=== PATIENT | female | born 1955 | race Caucasian/White ===

== ENCOUNTER 2020-06-19 13:54 | Outpatient (REF) | payer OTHER, SELFPAY ==
--- NOTE | 2020-06-19 13:59 | XR_ITS ---
EXAMINATION: Bilateral knee series CLINICAL INFORMATION: Pain in right knee. Pain in left knee. COMPARISON: None TECHNIQUE: [place] and lateral views of each knee. AP bilateral standing view of both knees. FINDINGS: Right knee: Mild medial compartment joint space narrowing. No fracture or dislocation seen. No joint effusion. There is enthesopathy of the distal quadriceps tendon attachment as well as the proximal and distal patellar tendon attachments. Mild medial patellofemoral joint space narrowing and medial patellar tilt. Left knee: No fracture or dislocation. No joint effusion. Minimal medial compartment joint space narrowing. Lateral patellar osteophytosis. There is enthesopathy of the distal quadriceps and attachment as well as the proximal and distal patellar tendon attachments. XR/XR knee RT 2V IMPRESSION: No acute osseous abnormality. 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
--- NOTE | 2020-06-19 13:59 | XR_ITS ---
EXAMINATION: Bilateral knee series CLINICAL INFORMATION: Pain in right knee. Pain in left knee. COMPARISON: None TECHNIQUE: [place] and lateral views of each knee. AP bilateral standing view of both knees. FINDINGS: Right knee: Mild medial compartment joint space narrowing. No fracture or dislocation seen. No joint effusion. There is enthesopathy of the distal quadriceps tendon attachment as well as the proximal and distal patellar tendon attachments. Mild medial patellofemoral joint space narrowing and medial patellar tilt. Left knee: No fracture or dislocation. No joint effusion. Minimal medial compartment joint space narrowing. Lateral patellar osteophytosis. There is enthesopathy of the distal quadriceps and attachment as well as the proximal and distal patellar tendon attachments. XR/XR knee standing BI IMPRESSION: No acute osseous abnormality. 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
--- NOTE | 2020-06-19 13:59 | XR_ITS ---
EXAMINATION: Bilateral knee series CLINICAL INFORMATION: Pain in right knee. Pain in left knee. COMPARISON: None TECHNIQUE: [place] and lateral views of each knee. AP bilateral standing view of both knees. FINDINGS: Right knee: Mild medial compartment joint space narrowing. No fracture or dislocation seen. No joint effusion. There is enthesopathy of the distal quadriceps tendon attachment as well as the proximal and distal patellar tendon attachments. Mild medial patellofemoral joint space narrowing and medial patellar tilt. Left knee: No fracture or dislocation. No joint effusion. Minimal medial compartment joint space narrowing. Lateral patellar osteophytosis. There is enthesopathy of the distal quadriceps and attachment as well as the proximal and distal patellar tendon attachments. XR/XR knee LT 2V IMPRESSION: No acute osseous abnormality. 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
== END 2020-06-19 13:55 | disposition home or self-care (01) ==
LOC: HO.HOSX 13:54
PROVIDERS: PCP Family Medicine; Referring Provider Family Medicine; Visit Provider Orthopaedic Surgery
DX: M25.561 Pain in right knee (principal); M25.562 Pain in left knee; Z87.39 Personal history of other diseases of the musculoskeletal system and connective tissue
CPT/HCPCS: 73560; 73565; 99202

== ENCOUNTER 2020-09-07 06:06 | Day surgery (SDC) | payer OTHER, SELFPAY ==
[2020-09-03 09:07] VITALS: BMI 28.1
[2020-09-03 10:08] VITALS: BMI 28.0
--- NOTE | 2020-09-06 08:16 | P.CONAN_ITS ---
Documented by User: Temitope Swenson 09/06/20 08:17 HPI - Anesthesia Eval Consult details Narrative: 65yo F for Colonoscopy [facility] Past Medical History Medical History Back pain Borderline diabetes History of anxiety History of postoperative nausea and vomiting HTN (hypertension) Surgical History Surgical History H/O colonoscopy History of esophagogastroduodenoscopy (EGD) History of spinal surgery History of surgery on left wrist Social History Social History Alcohol intake: never Smoking Status: Never smoker Use of substances other than those prescribed or required for medical reasons: No Advance Directives Information Provided: No Recently lost weight without trying: No Current occupational status: unemployed Meds Allergies Allergy/AdvReac Type Severity Reaction Status Date / Time codeine [CODEINE] Allergy Mild NAUSEA & Verified 09/07/20 06:19 VOMITING penicillin G [Penicillin G] Allergy Mild ITCH Verified 09/07/20 06:19 Sulfa (Sulfonamide Allergy Mild RASH Verified 09/07/20 06:19 Antibiotics) [SULFA (SULFONAMIDE ANTIBIOTICS)] Home Medications Medication Instructions Recorded Confirmed Type bisoprolol 2.5 1 tab PO DAILY 06/19/20 09/03/20 History mg-hydrochlorothiazide 6.25 mg tablet tramadol 50 mg tablet 50 mg PO DAILY 06/19/20 09/03/20 History gabapentin 1 cap PO BEDTIME PRN 09/03/20 09/03/20 History lisinopril 20 mg PO DAILY 09/03/20 09/07/20 History Exam Exam Date and Time: September 06, 2020 0816 Height,Weight and Vital Signs: Height 5 ft 5 in Weight 76.657 kg Assessment and Plan Assessment Anesthesia Assessment: Chart Reviewed Documented by User: Kay Carrera 09/07/20 08:12 [facility] Past Medical History Medical History Back pain Borderline diabetes History of anxiety History of postoperative nausea and vomiting HTN (hypertension) Family History Family history of problems with anesthesia: No Surgical History Surgical History H/O colonoscopy History of esophagogastroduodenoscopy (EGD) History of spinal surgery History of surgery on left wrist History of Problems with Anesthesia: Yes (PONV) Social History Social History Alcohol intake: never Smoking Status: Never smoker Use of substances other than those prescribed or required for medical reasons: No Advance Directives Information Provided: No Recently lost weight without trying: No Current occupational status: unemployed Meds Allergies Allergy/AdvReac Type Severity Reaction Status Date / Time codeine [CODEINE] Allergy Mild NAUSEA & Verified 09/07/20 06:19 VOMITING penicillin G [Penicillin G] Allergy Mild ITCH Verified 09/07/20 06:19 Sulfa (Sulfonamide Allergy Mild RASH Verified 09/07/20 06:19 Antibiotics) [SULFA (SULFONAMIDE ANTIBIOTICS)] Home Medications Medication Instructions Recorded Confirmed Type bisoprolol 2.5 1 tab PO DAILY 06/19/20 09/03/20 History mg-hydrochlorothiazide 6.25 mg tablet tramadol 50 mg tablet 50 mg PO DAILY 06/19/20 09/03/20 History gabapentin 1 cap PO BEDTIME PRN 09/03/20 09/03/20 History lisinopril 20 mg PO DAILY 09/03/20 09/07/20 History Exam Height,Weight and Vital Signs: Vital Signs Temp Pulse Resp BP Pulse Ox 09/07/20 06:27 96.8 F 68 18 189/86 H 98 Airway Mallampati Class: II TM Dist: >3cm Neck ROM: Full Denture: Upper Heart: RRR Lungs: CTAB Assessment and Plan Assessment Anesthesia Assessment: Anesthesia Plan Discussed and Chart Reviewed Final Anesthetic Review NPO: Yes ASA Class: II Final Preanesthetic Review: No Changes in Pt Med Stat, Meds/Allgs Chart Reviewed, Consent Obtained/Reviewed and Anes Risks/Benef Reviewed Patient Risk: Low Procedure Risk: Low Assessment/Block/Sedation in SS: Assess/Block/Sedation-SS Anesthetic Plan Anesthetic Plan: MAC: Disposition: Standard PACU
[2020-09-07 06:27] VITALS: BP 189/86; PULSE 68; RESP 18; TEMP 36; O2SAT 98
[2020-09-07] MEDS: Lactated Ringers 1,000 ML 100 ML IVCONT (06:47)
--- NOTE | 2020-09-07 06:48 | PC.NURSE ---
BP RECHECK IS 170/82 AT THIS TIME.
--- NOTE | 2020-09-07 07:28 | PC.NURSE ---
BP 171/85 AT THIS TIME. HR 72 NSR. ANESTHESIA AT BEDSIDE AND IS AWARE OF PATIENT'S BP.
[2020-09-07 08:31] VITALS: BP 120/66; PULSE 66; RESP 16; TEMP 36.2; O2SAT 97
--- NOTE | 2020-09-07 08:34 | PM.OP ---
Brief Operative Note Date of Service: 09/07/20 Pre-op diagnosis: Screening Post-op diagnosis: other (Colon polyps) Procedure: Colonoscopy to cecum and TI with biopsy and removal of polyps Surgeon: Glynn Mccallum Anesthesia: MAC Estimated blood loss (mL): 3.0 Pathology: other (A. Ascending colon polyp B. Polyp at 20cm) Condition: stable Disposition: PACU
[2020-09-07 08:47] VITALS: BP 142/82; PULSE 56; RESP 16; TEMP 36.2; O2SAT 98
--- NOTE | 2020-09-07 09:19 | OP_ITS ---
SURGEON: Glynn Mccallum MD INDICATIONS: The patient presents for evaluation of colorectal cancer screening and personal history of tubular adenoma of the colon. Full consent has been obtained from her for this, including risks of bleeding and perforation. PREOPERATIVE DIAGNOSIS: POSTOPERATIVE DIAGNOSIS: PROCEDURE PERFORMED: Colonoscopy to the cecum and terminal ileum with biopsy and removal of polyps. ESTIMATED BLOOD LOSS: COMPLICATIONS: ANESTHESIA: Monitored anesthesia care. ASSISTANTS: SPECIMENS: PREOPERATIVE DIAGNOSES: Colorectal cancer screening and personal history of tubular adenoma of the colon. POSTOPERATIVE DIAGNOSES: Colorectal cancer screening and personal history of tubular adenoma of the colon, small colon polyps, diverticulosis and internal hemorrhoids. DESCRIPTION OF PROCEDURE: The patient was placed in the left lateral decubitus position. The digital rectal exam revealed no abnormalities. The Olympus video pediatric colonoscope was entered into the rectum and advanced easily to the cecum. Once in the cecum, I did identify normal appearing cecal pouch with appendiceal orifice and a normal-appearing ileocecal valve. The terminal ileum was cannulated and appeared normal. The scope was withdrawn back in the colon. The entire cecum was well visualized other than a small portion of some residual stool, which was irrigated and suctioned away as best as possible, although not completely. However, the majority of tthe cecum was well visualized and did appear normal. The scope was then slowly withdrawn assessing all mucosal surfaces carefully. Again, the preparation throughout the colon was excellent except for some small areas of residual stool, which were again suctioned away as best as possible. In the ascending colon and 20 cm were flat, approximately 4 mm polyps which were each biopsied and completely removed with cold biopsy forceps. I did not visualize any other polyps, colitis, or angiodysplasia. There was a mild amount of sigmoid diverticulosis. In the rectum, scope was retroflexed visualizing small internal hemorrhoids, but no other pathology. The rectal mucosa appeared normal. The scope was straightened and withdrawn from the patient. She tolerated the procedure well and was returned to recovery area in stable condition. IMPRESSION: 1. Small colon polyps, status post biopsy removal. 2. Diverticulosis. 3. Internal hemorrhoids. PLAN: The results of the pathology will be checked. I would recommend a repeat colonoscopy in 5 years for further surveillance. She will otherwise see me on a p.r.n. basis. MD LEANDRO Batista/NALINI / [id number] BG
== END 2020-09-07 09:37 | disposition home or self-care (01) ==
PROVIDERS: PCP Family Medicine; Visit Provider Internal Medicine
PROC: 0DJD8ZZ Inspection of Lower Intestinal Tract, Via Natural or Artificial Opening Endoscopic (ICD-10-PCS; CPT 45378; principal; 2020-09-07 07:30)
DX: Z12.11 Encounter for screening for malignant neoplasm of colon (principal); Z86.010 Personal history of colon polyps; D12.2 Benign neoplasm of ascending colon; K63.5 Polyp of colon; K57.30 Diverticulosis of large intestine without perforation or abscess without bleeding; K64.8 Other hemorrhoids; I10 Essential (primary) hypertension; R73.03 Prediabetes; Z79.899 Other long term (current) drug therapy; Z88.0 Allergy status to penicillin; Z88.2 Allergy status to sulfonamides; Z88.8 Allergy status to other drugs, medicaments and biological substances
CPT/HCPCS: 45380; 88305

== ENCOUNTER → 2024-05-04 15:22 | Outpatient (REF) | payer OTHER, SELFPAY ==
--- NOTE | 2024-05-04 15:30 | CA_ITS ---
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 The calculated ejection fraction is 62% by biplane method. - No obvious valvular pathology seen on this study. Findings Left Ventricle Normal left ventricular cavity size. There is mildly increased left ventricular wall thickness. The left ventricular systolic function is normal. The calculated ejection fraction is 62% by biplane method. There is no evidence of regional wall motion abnormalities. Evidence suggests grade I (mild) diastolic dysfunction. Right Ventricle Normal right ventricular cavity size and systolic function. Atria Both atria are normal in size. Aortic Valve There is a normal trileaflet aortic valve. There is no aortic valve stenosis. There is no aortic valve regurgitation. Mitral Valve The mitral valve appears normal. There is trace mitral valve regurgitation. There is no mitral valve stenosis. Pulmonic Valve The pulmonic valve is likely normal. Tricuspid Valve Normal tricuspid valve structure. There is trace tricuspid valve regurgitation. There is no evidence of pulmonary hypertension. Great Vessels The asc aorta is normal in size. Venous The inferior vena cava is normal in size and collapses greater than 50% with inspiration. Pericardium/Pleural There is no evidence of pericardial effusion. Prior Study Comparison No prior study available for comparison. Recommendations, Care & Conclusions No obvious valvular pathology seen on this study. Measurements 2D Linear Measurements IVSd: 1.05 0.6-0.9/0.6-1.0 cm LVIDd: 3.79 3.9-5.3/4.2-5.9 cm LVIDd Index: 2.03 2.4-3.2/2.2-3.1 cm/m2 LVIDs: 2.45 2.0-3.6 cm LVPWd: 1.10 0.7-1.1 cm Ao Root: 3.80 2.1-3.5 cm LA Diam: 3.40 2.7-3.8/3.0-4.0 cm LAIDs Index: 1.82 1.5-2.3 cm/m2 LV Mass: 161.35 67-162/88-224 g LV Mass Index: 86.28 43-95/49-115 g/m2 LVOT Diam: 2.30 3.0+(-)1.3 cm 2D Systolic Function EF 4C: 66.90 >55% EF 2C: 54.60 >55% EF BiP: 61.70 >55% Mitral Valve MV VTI: 0.30 MV Pk Joe: 0.93 MV Mn Joe: 0.54 MV Pk Grad: 3.00 MV Mn Grad: 1.00 MV Pk E: 0.60 MV PK A: 0.90 MV Decel Time: 295.00 E/A: 0.70 E'Lateral: 6.09 E'Medial: 4.24 E/E' Med: 14.20 E/E' Lat: 9.90 PHT: 86.00 MVA PHT: 2.56 MVA Continuity: 2.97 Decel [place]: 2.03 Aortic Valve AoV Pk Joe: 1.18 AoV Mn Joe: 0.71 AoV VTI: 0.28 AoV Pk Grad: 6.00 Aov Mn Grad: 3.00 KAREN Cont.VTI: 3.22 LVOT LVOT Pk Joe: 0.76 LVOT Mn Joe: 0.50 LVOT VTI: 0.22 LVOT Pk Grad: 2.00 LVOT Mn Grad: 1.00 LVOT Diam: 2.30 LVOT Area: 4.15 Diastolic Function MV Pk E: 0.60 MV Pk A: 0.90 E/A: 0.70 E'Medial: 4.24 E/E' Med: 14.20 E' Laterial: 6.09 E/E' Lat: 9.90 Right Ventricle TAPSE (mm): 22.00 TVS' Joe: 10.00 Tricuspid Valve TR Pk Joe: 1.71 TR Pk Grad: 12.00 RA Press: 3.00 RVSP: 15.00 Great Vessels Aorta Ao Root-2D: 3.80 2.0-3.7 cm Ao Asc: 3.40 2.1-3.4 cm Pulmonary Valve PV Pk Joe: 0.86 Peak PV Grad: 3.00 Updated in Other Vendor System with Status of Final Rafa Simental MD electronically signed on 05/05/2024 12:02:32 PM with status of Final
== END ==
LOC: HO.CARD 15:22
PROVIDERS: PCP Family Medicine; Visit Provider Family Medicine
DX: R06.02 Shortness of breath (principal); Z87.09 Personal history of other diseases of the respiratory system
CPT/HCPCS: 93306

== ENCOUNTER → 2024-05-04 15:30 | Outpatient (BNV) | payer OTHER, SELFPAY | PROVIDERS: PCP Family Medicine; Visit Provider Internal Medicine | DX: I51.89 Other ill-defined heart diseases (principal) | CPT/HCPCS: 93306 ==

== ENCOUNTER 2025-06-06 09:19 | Outpatient (REF) | payer OTHER, SELFPAY ==
[2025-06-06 11:19] LABS: MANUAL DIFF FLAG NO
[2025-06-06 11:38] LABS: Hematocrit 40.2 % (37.0-47.0); Hemoglobin 12.7 g/dl (12.0-16.0); Imm Gran Abs Auto 0.01 X10*3/uL (0.00-0.03); Imm Gran Pct Auto 0.3 % (0.0-0.4); Lymphocytes Absolute Auto 1.9 X10*3/uL (1.2-4.9); Mean Corpuscular HGB Conc 31.6 g/dl (31.0-35.0); Mean Corpuscular Hemoglobin 27.3 pg (27.0-33.0); Mean Corpuscular Volume 86.5 fL (80.0-98.0); NRBC Abs Auto 0.000 X10*3/uL (0.0-0.012); NRBC Pct Auto 0.0 /100WBC (0.0-0.2); Platelet Count 240 X10*3/uL (160-400); Red Blood Count 4.65 X10*6/uL (4.20-5.50); White Blood Count 4.0 X10*3/uL (4.8-10.8)
[2025-06-06 12:31] LABS: Alanine Aminotransferase 15 U/L (0-31); Albumin Level 4.3 g/dL (3.5-5.0); Alkaline Phosphatase 86 U/L (39-117); Anion Gap 9 (12-20); Aspartate Amino Transferase 26 U/L (5-31); Blood Urea Nitrogen 17 mg/dL (9-16); Calcium 9.6 mg/dL (8.4-10.2); Carbon Dioxide 31 mmol/L (22-29); Chloride 105 mmol/L (96-108); Cholesterol 171 mg/dL (<200); Estimated Glomerular Filt Rate > 60; HDL Cholesterol 47 mg/dL (>40); Potassium 4.3 mmol/L (3.3-5.1); Sodium 141 mmol/L (135-145); Total Protein 7.9 g/dL (6.5-8.0); Triglycerides 151 mg/dL (<150)
== END 2025-06-06 09:20 | disposition home or self-care (01) ==
LOC: HO.LAB 09:19
PROVIDERS: PCP Physician Assistant; Visit Provider Physician Assistant
DX: I10 Essential (primary) hypertension (principal); E11.9 Type 2 diabetes mellitus without complications; M79.7 Fibromyalgia; G89.29 Other chronic pain; M51.360 Other intervertebral disc degeneration, lumbar region with discogenic back pain only; Z79.899 Other long term (current) drug therapy
CPT/HCPCS: 36415; 80048; 80061; 80076; 82306; 83036; 84443; 85025; 99202

== ENCOUNTER 2025-06-06 09:19 | Outpatient (AMB) | payer OTHER, SELFPAY ==
--- NOTE | 2025-06-06 09:19 | MHC.PC.OV ---
Vital Signs 06/06/25 09:29 06/06/25 09:59 Height 5 ft 5.94 in Weight 73.028 kg BMI 26.0 BP 144/72 H 138/78 Blood Pressure Location Lt brachial Position Sitting Respiration 17 Pulse 60 Pulse Source Pulse Oximeter Temp 97.9 F Temp Source Temporal Artery Scan Pulse Oximetry (%) 96 Oxygen Delivery Method Room Air Intake Visit Reasons: VIVIEN/ Hand pt. - meds Social Sciences Research Scientist Required: No Accompanied by: Self / Same As Patient Allergies codeine (CODEINE) Allergy (Mild, Verified 06/06/25 09:19) NAUSEA & VOMITING penicillin G (Penicillin G) Allergy (Mild, Verified 06/06/25 09:19) ITCH Sulfa (Sulfonamide Antibiotics) (SULFA (SULFONAMIDE ANTIBIOTICS)) Allergy (Mild, Verified 06/06/25 09:19) RASH Medication List - Last Reconciled 06/06/25 by SOFI Dutton bisoprolol-hydrochlorothiazide 2.5-6.25 mg (Ziac) 1 tab PO DAILY gabapentin 100 mg PO BEDTIME lisinopril 20 mg PO DAILY multivitamin 1 tab PO DAILY tramadol 50 mg PO BID Tobacco use date assessed: 06/06/25 Fall risk assessment: 1 Fall in past year Last assessed Fall Risk: 06/06/25 Dental Screening Dental Screen Date: 06/06/25 Did you have a dental visit in the last 12 months?: Yes Did you have a dental problem in the last 6 months where you did not have access to dental care?: No Was dental information given to patient?: Patient has dentist HPI HPI Comments History of Present Illness Details 69-year-old female with history of hypertension, prediabetes, fibromyalgia, chronic low back pain, history of John-Schlatter disease presenting to the office today for management of chronic conditions and to establish care. Hypertension-blood pressure 130/78 on recheck. Compliant with bisoprolol-hydrochlorothiazide 2.5-6.25 mg and lisinopril 20 mg daily. Hypertension likely complicated by chronic pain Prediabetes-due for A1c Chronic low back pain/DDD-history of disc herniation s/p diskectomy in the early . Reports had a slip and fall at work in the early . Since the procedure she has had worsening pain in the low back. Radicular symptoms however have resolved. No weakness,/bowel/bladder dysfunction. She is able to ambulate but slowly. She has been on tramadol 50 mg daily for years as well as gabapentin 100 mg at bedtime. She has been offered other medications such as muscle relaxers and increased dose of gabapentin but states she prefers not to be on medications that can sedate her. 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 Otherwise rest for symptom management Fibromyalgia- reports uncomfortable diffuse pain, poorly managed. Does not exercise. Reports stress/anxiety historically but feels this is well-controlled Concerns: None other than above Health Maintenance: Last colonoscopy 08/2020, tubular adenoma [address] Felipe Last mammo 07/03, [facility], 1 year follow up. Scheduled for next Due for DEXA ROS: General: No fevers, malaise, unintentional weight loss HEENT: No blurred vision, diplopia. No sore throat, nasal congestion, rhinorrhea, sinus pain, ear pain Cardiovascular: No chest pain, palpitations, or leg edema Respiratory: No shortness of breath, wheezing, cough GI: No abdominal pain, nausea, vomiting, diarrhea, constipation, melena, hematochezia : No dysuria, hematuria, increased urinary frequency, decreased urinary output MSK: No myalgia, back pain Neuro: No headaches, weakness, paresthesias Skin: No rashes or lesions EXAM: Constitutional - Awake and Alert, No apparent distress Eyes - PERRL Cardiovascular - S1S2, RRR, No edema Respiratory - Normal lung expansion, Normal respiratory effort, No respiratory distress, CTA bilaterally Extremities - no calf tenderness bilaterally, no swelling MSK- TTP over the left SI joint. No other midline or paraspinal tenderness to palpation Skin - Warm/Dry Neurological - Alert & oriented x3. 5/5 strength ble. Antalgic gait Psychological - Appropriate affect [facility] Medical History (Updated 06/06/25 @ 10:08 by SOFI Dutton) Fibromyalgia Prediabetes Chronic low back pain DDD (degenerative disc disease), lumbar History of postoperative nausea and vomiting Borderline diabetes Back pain History of anxiety HTN (hypertension) Surgical History (Updated 06/05/25 @ 16:03 by Trish Poole) History of esophagogastroduodenoscopy (EGD) H/O colonoscopy (~09/07/20) History of spinal surgery History of surgery on left wrist Social History Housing: Apartment Alcohol intake: never Patient Tobacco Use Status: Never used Tobacco e-Cigarette/Vaping Use: Never Used service: No Current occupational status: unemployed Questionnaire AUDIT C Alcohol Use Questionnaire (AUDIT-C) 1. How often do you have a drink containing alcohol?: Never 3. How often do you have six or more drinks on one occasion?: Never Total Score: 0 Physical exam (Primary Care) Vital Signs: Last Vital Signs Temp 97.9 F 06/06/25 09:29 Pulse 60 06/06/25 09:29 Resp 17 06/06/25 09:29 BP 138/78 06/06/25 09:59 Pulse Ox 96 06/06/25 09:29 Oxygen Delivery Method Room Air 06/06/25 09:29 BMI result Body Mass Index 26.0 Tobacco/Smoking Status: Tobacco use Status Tobacco use date assessed 06/06/25 06/06/25 09:20 Patient Tobacco Use Status Never used Tobacco 06/06/25 09:31 e-Cigarette/Vaping Use Never Used 06/06/25 09:31 Coding Level of Care Code New Pt Level 4 (50199) Complex EM visit Add On G2211 Diagnoses HTN (hypertension) I10 Prediabetes R73.03 Fibromyalgia M79.7 Chronic low back pain M54.50; G89.29 Assessment & Plan Assessment & Plan (1) HTN (hypertension): Code(s): I10 - Essential (primary) hypertension Category: Medical Plan: Controlled on recheck. Continue bisoprolol-hydrochlorothiazide 2.56.25 mg and lisinopril 20 mg daily. Low-sodium diet. We will work on better pain control which should also help blood pressure management (2) Prediabetes: Code(s): R73.03 - Prediabetes Category: Medical Plan: Patient not aware of diagnosis. A1c ordered. Diet low in refined sugars and simple carbohydrates. Recommend exercise as tolerated (3) Fibromyalgia: Code(s): M79.7 - Fibromyalgia Category: Medical Plan: Poorly-controlled pain. Discussed increasing gabapentin but she is not interested in this. Continue 100 mg daily. Also discussed adding an SSRI such as Cymbalta but she is not interested in this either. Recommend managing stress/anxiety as she has been doing. Also recommend exercise as tolerated as she is advised this may also help with pain management. (4) Chronic low back pain: Code(s): M54.50 - Low back pain, unspecified; G. - Other chronic pain Category: Medical Plan: With known history of DDD and history of diskectomy in the early 90s. Agreeable to referral to water rights specialist which is placed. Increase tramadol to 50 mg twice daily. Counseled on side effects and tolerance/dependency. Can also continue gabapentin 100 mg at bedtime. As noted above, not interested in increasing gabapentin dosage even at bedtime. Declines muscle relaxer. Declines physical therapy she states that she has completed this without improvement in symptoms. Plan Follow-up in the office in 6 months. Labs to be completed today. Referred for DEXA scan. Reviewed last colonoscopy which showed tubular adenoma, next due 2025. Present for mammogram next month as scheduled. Orders: Orders XR lumbar spine 2-3V Today G. - Other chronic pain, M51.36 - Other intervertebral disc degeneration, lumbar region, M54.50 - Low back pain, unspecified XR DEXA axial skeleton Today M89.8X9 - Other specified disorders of bone, unspecified site, N95.1 - Menopausal and female climacteric states, Z13.820 - Encounter for screening for osteoporosis Hemoglobin A1c Today G. - Other chronic pain, M51.36 - Other intervertebral disc degeneration, lumbar region, M54.50 - Low back pain, unspecified, R73.03 - Prediabetes Lipid Panel Today G89. - Other chronic pain, M51.36 - Other intervertebral disc degeneration, lumbar region, M54.50 - Low back pain, unspecified, R73.03 - Prediabetes Liver Panel Today G89. - Other chronic pain, M51.36 - Other intervertebral disc degeneration, lumbar region, M54.50 - Low back pain, unspecified, R73.03 - Prediabetes TSH reflex Free T4 Today G89. - Other chronic pain, M51.36 - Other intervertebral disc degeneration, lumbar region, M54.50 - Low back pain, unspecified, R73.03 - Prediabetes Vitamin D 25-OH Total Today G89. - Other chronic pain, M51.36 - Other intervertebral disc degeneration, lumbar region, M54.50 - Low back pain, unspecified, R73.03 - Prediabetes Basic Metabolic Panel Today G89.29 - Other chronic pain, M51.36 - Other intervertebral disc degeneration, lumbar region, M54.50 - Low back pain, unspecified, R73.03 - Prediabetes Complete Blood Count Auto Diff Today G89.29 - Other chronic pain, M51.36 - Other intervertebral disc degeneration, lumbar region, M54.50 - Low back pain, unspecified, R73.03 - Prediabetes Referrals Orthopedics Referral G89.29 - Other chronic pain, M51.36 - Other intervertebral disc degeneration, lumbar region, M54.50 - Low back pain, unspecified Medications: Changed From tramadol Take two tablets by mouth every 8 hours as needed 50 mg PO DAILY To tramadol Take two tablets by mouth every 8 hours as needed 50 mg PO BID 60 tabs 0RF
[2025-06-06 09:29] VITALS: BP 144/72; PULSE 60; RESP 17; TEMP 36.6; O2SAT 96; BMI 26.0
[2025-06-06 09:59] VITALS: BP 138/78
--- OUTSIDE RECORDS SUMMARY | 2025-06-06 10:28 | XMS_ITS | Encounter Summary ---
Author Organization [facility] Address [address] [facility] [address] [place] [address] Phone Care Team Providers Care Strategic Marketing Associate Name Role Phone Chalino Hand MD Primary Care Provider Domonique Acharya MD Primary Care Provider [phone] Pcp, Unknown Primary Care Provider Unavailabl e Encounter Details Date Type Department Care Team (Latest Contact Info) Description 07/05/2022 Ancillary Orders [facility] [address] [place] [address] Lionel Pope, DO [address] [place] [address] [email or web address] Calculus of gallbladder without cholecystitis without obstruction Social History Tobacco Use Types Packs/Day Years Used Date Smoking Tobacco: Never Smokeless Tobacco: Never Alcohol Use Standard Drinks/Week Comments No 0 (1 standard drink = 0.6 oz pur e alcohol) Comments No Sex and Gender Information Value Date Recorded Sex Assigned at Female 05/13/2019 9:59 PM EDT Legal Sex Female 9:53 PM EDT Gender Identity Female 05/13/2019 9:59 PM EDT Sexual Orientation Not on file documented as of this encounter Functional Status * Calculated C-SSRS Risk Score (Lifetime/Recent) Answer Date of Assessment Author No Risk Indicated 07/05/2022 1:56 AM Ashkan Friedman, SHEFALI * [place] Suicide Severity Rating Scale (Screener/Recent Self-Report) Question Answer Date of Assessment Author 1. Wish to be (Past 1 Month) No 022 1:56 AM Ashkan Friedman, SHEFALI 2. Non-Specific Active Suici lizzie Thoughts (Past 1 Month) No 07/05/2022 1:56 AM Agapito Friedman, SHEFALI 6. Suicidal Behavior (Lifetime) No 1:56 AM Ashkan Friedman, RN documented as of this encounter Plan of Treatment Upcoming Encounters Date Type Department Care Team (Late st Contact Info) Description 04/11/2025 Procedure Pass [address] [address] 11/27/2025 1:15 PM EDT Appointment [address] [address] Domonique Acharya MD [address] [place] [phone] documented as of this encounter Results * US ABDOMEN LIMITED RIGHT UPPER QUADRANT (07/05/2022 11:06 AM EST) Anatomical Region Laterality Modality Abdomen Ultrasound 07/05/2022 12:2 3 PM EST Impressions 07/05/2022 12:27 PM EST Cholelithiasis without evidence of acute cholecystitis. Narrative 07/05/2022 12:27 PM EST US ABDOMEN LIMITED RIGHT UPPER QUADRANT TECHNIQUE: US Abdominal limited right upper quadrant. COMPARISON: Abdominal CT dated 06/17/2013 FINDINGS: Liver: Normal. There is a 2.7 x 1.9 x 1.7 cm cyst in the inferior right hepatic lobe. No other focal lesions. Main Portal Vein: Patent with normal direction of flow. Gallbladder: Multiple gallstones are present. Gallbladder is underdistended. Otherwise, no significant gallbladder wall thickening there is no pericholecystic fluid. Baker's Sign: Negative. Biliary: Normal. No intrahepatic or extrahepatic biliary ductal dilatation. The common bile duct measures 4 mm. No hydronephrosis in the right kidney Procedure Note Sherry Abad MD - 07/05/2022 US ABDOMEN LIMITED RIGHT UPPER QUADRANT TECHNIQUE: US Abdominal limited right upper quadrant. COMPARISON: Abdominal CT dated 06/17/2013 FINDINGS: Liver: Normal. There is a 2.7 x 1.9 x 1.7 cm cyst in the inferior righthepatic lobe. No other focal lesions. Main Portal Vein: Patent with normal direction of flow. Gallbladder: Multiple gallstones are present. Gallbladder isunderdistended. Otherwise, no significant gallbladder wall thickeningthere is no pericholecystic fluid. Baker's Sign: Negative. Biliary: Normal. No intrahepatic or extrahepatic biliary ductaldilatation. The common bile duct measures 4 mm. No hydronephrosis in the right kidney IMPRESSION: Cholelithiasis without evidence of acute cholecystitis. us Lionel Pope DO IMG US ABDOMEN Final Result documented in this encounter Visit Diagnoses Diagnosis Calculus of gallbladder without cholecystitis without obstruction Calculus of gallbladder without cholecystitis without obstruction documented in this encounter Care Teams Strategic Marketing Associate Relationship Specialty Start Date End Date Chalino Hand MD [address] [place] [address] [place] [address] PCP - General 05/26/17 04/10/25 Domonique Acharya MD [address] [place] [address] [place] [address] PCP - General Internal Medicine 04/11/25 05/05/25 Pcp, Unknown PCP - General 05/06/25 documented as of this encounter Additional Source Comments The information contained in this document represents components of the legal health record. It is not the complete legal health record.[facility]
--- OUTSIDE RECORDS SUMMARY | 2025-06-06 10:28 | XMS_ITS | Encounter Summary ---
Author Organization [facility] Address [address] [facility] [address] [place] [address] Phone Care Team Providers Care Molding Machine Operator Name Role Phone Chalino Hand MD Primary Care Provider Domonique Acharya MD Primary Care Provider [phone] Pcp, Unknown Primary Care Provider Unavailabl e Encounter Details Date Type Department Care Team (Late st Contact Info) Description 12/18/2022 Procedure Pass [facility], [facility] [address] [place] [address] Social History Tobacco Use Types Packs/Day Years Used Date Smoking Tobacco: Never Smokeless Tobacco: Never Alcohol Use Standard Drinks/Week Comments No 0 (1 standard drink = 0.6 oz pur e alcohol) Education Answer Date Recorded Are you interested in more education? Not on olive e 12/05/2022 Are you concerned about learning? Not on file 12/05/2022 No 12/05/2022 No 12/05/2022 Intimate Partner Violence Answer Date R ecorded Are you denied basic needs s uch as food, clothing, or medical care? No 08/13/2022 In the past 12 months have y ou been in a relationship with a person who hurts, threatens, or tries to control you? No 08/13/2022 Are you denied basic needs s uch as food, clothing, or medical care? No 08/13/2022 In the past 12 months have y ou been in a relationship with a person who hurts, threatens, or tries to control you? No 08/13/2022 Comments No Sex and Gender Information Value Date Recorded Sex Assigned at Female 05/13/2019 9:59 PM EDT Legal Sex Female 9:53 PM EDT Gender Identity Female 05/13/2019 9:59 PM EDT Sexual Orientation Not on file documented as of this encounter Plan of Treatment Upcoming Encounters Date Type Department Care Team (Late st Contact Info) Description 04/11/2025 Procedure Pass [address] [address] 11/27/2025 1:15 PM EDT Appointment [address] [address] Domonique Acharya MD [address] [place] [address] documented as of this encounter Visit Diagnoses Not on filedocumented in this encounter Care Teams Molding Machine Operator Relationship Specialty Start Date End Date Chalino Hand MD [address] [place] [address] [place] [address] PCP - General 05/26/17 04/10/25 Domonique Acharya MD [address] [place] [address] [place] [address] PCP - General Internal Medicine 04/11/25 05/05/25 Pcp, Unknown PCP - General 05/06/25 documented as of this encounter Additional Source Comments The information contained in this document represents components of the legal health record. It is not the complete legal health record.[facility]
--- OUTSIDE RECORDS SUMMARY | 2025-06-06 10:28 | XMS_ITS | Encounter Summary ---
Author Organization [facility] Address [address] [facility] [address] [place] [address] Phone Care Team Providers Care Peoples[employer] Financials Name Role Phone Chalino Hand MD Primary Care Provider Domonique Acharya MD Primary Care Provider Pcp, Unknown Primary Care Provider Unavailabl e Encounter Details Date Type Department Care Team (Late Contact Info) Description 09/28/2019 Ancillary Orders Virtual Department [address] [place] [address] Chalino Hand MD [address] [place] [address] [place] [address] Breast screening Social History Tobacco Use Types Packs/Day Years [...] Encounters Date Type Department Care Team (Late Contact Info) Description 04/11/2025 [address] [address] 11/27/2025 1:15 PM EDT Appointment [address] [address] Domonique Acharya MD [address] [place] [address] documented as of this encounter Results * BI MAMMOGRAM SCREENING WITH TOMOSYNTHESIS WITH CAD (BILATERAL) (05/01/2020 12:58 PM EDT) Anatomical Region Laterality Modality Breast Left, Breast Right, Breast Bilateral Bila teral Mammography 05/01/2020 1:15 PM EDT Impressions 05/01/2020 1:17 PM EDT No mammographic evidence of malignancy. BI-RADS CATEGORY: 2 - Benign finding. DENSITY: The breast tissue is heterogeneously dense, an appearance which lowers the sensitivity of mammography. Narrative 05/01/2020 1:17 PM EDT Standard digital full-field 2-D C view and two-plane tomographic imaging was performed and compared with multiple prior studies, most recently 12/24/2018, with utilization of computer-aided detection. The breast parenchyma is heterogeneously dense, somewhat limiting mammographic sensitivity. The stromal markings are essentially unchanged in overall appearance and distribution. No dominant spiculated mass, suspicious clustered microcalcifications, or focal zone of pathologic skin thickening or retraction are noted to have arisen in the interim. Scattered benign-appearing punctate microcalcifications bilaterally and a right breast macrocalcification are overall stable. Procedure Note Bob Cox MD - 05/01/2020 Standard digital full-field 2-D C view and two-plane tomographic imagingwas performed and compared with multiple prior studies, most qbejrawd42/17/2019, with utilization of computer-aided detection. The breast parenchyma is heterogeneously dense, somewhat limitingmammographic sensitivity. The stromal markings are essentially unchangedin overall appearance and distribution. No dominant spiculated mass,suspicious clustered microcalcifications, or focal zone of pathologic skinthickening or retraction are noted to have arisen in the interim.Scattered benign-appearing punctate microcalcifications bilaterally and aright breast macrocalcification are overall stable. IMPRESSION: No mammographic evidence of malignancy. BI-RADS CATEGORY: 2 - Benign finding. DENSITY: The breast tissue is heterogeneously dense, an appearance whichlowers the sensitivity of mammography. Chalino Hand MD IMG MG EXAMS Final Resul t documented in this encounter Visit Diagnoses Diagnosis Breast screening Breast screening, unspecified Breast screening Breast screening, unspecified documented in this encounter Care Teams [employer] Financials Relationship Specialty Start Date End Date Chalino Hand MD [address] [place] [address] [place] [address] PCP - General 05/26/17 04/10/25 Domonique Acharya MD [address] [place] [address] [place] [address] PCP - General Internal Medicine 04/11/25 05/05/25 Pcp, Unknown PCP - General 05/06/25 documented as of this encounter Additional Source Comments The information contained in this document represents components of the legal health record. It is not the complete legal health record.[facility]
--- OUTSIDE RECORDS SUMMARY | 2025-06-06 10:28 | XMS_ITS | Encounter Summary ---
Author Organization [employer] Address [address] [facility] 7[address] [place] [address] Care Team Providers Care Glucose And Syrup Weigher Name Role Phone Unavailable Primary Care Provider Unavailabl e Encounter Details Date Type Department Care Team (Latest Contact Info) Description 01/05/2019 Abstract [facility] CONVERSIONS Dental, Provider, DDS Social History Tobacco Use Types Packs/Day Years Used Date Smoking Tobacco: Never Assessed Comments Unknown Sex and Gender Information Value Date Recorded Sex Assigned at Female 06/09/2022 10:31 AM EDT Legal Sex Female 10:31 AM EDT Gender Identity Female 06/09/2022 10:31 AM EDT Sexual Orientation Straight 05/06/2024 10 :28 AM EDT documented as of this encounter Plan of Treatment Not on file documented as of this encounter Visit Diagnoses Not on filedocumented in this encounter
--- OUTSIDE RECORDS SUMMARY | 2025-06-06 10:28 | XMS_ITS | Encounter Summary ---
Author Organization [facility] Address [address] [facility] [address] [place] [address] Phone Care Team Providers Care Shower Doors And Panels Fabricator Name Role Phone Chalino Hand MD Primary Care Provider Domonique Acharya MD Primary Care Provider Pcp, Unknown Primary Care Provider Unavailabl e Encounter Details Date Type Department Care Team (Late st Contact Info) Description 02/05/2022 Procedure Pass [address] [address] Social History Tobacco Use Types Packs/Day Years [...] st Contact Info) Description 04/11/2025 Procedure Pass [address] [address] 11/27/2025 1:15 PM EDT Appointment [address] [address] Domonique Acharya MD [address] [place] [address] documented as of this encounter Visit Diagnoses Not on filedocumented in this encounter Care Teams Shower Doors And Panels Fabricator Relationship Specialty Start Date End Date Chalino Hand MD [address] [place] [address] [place] [address] PCP - General 05/26/17 04/10/25 Domonique Acharya MD [address] [place] [address] [place] [address] PCP - General Internal Medicine 04/11/25 05/05/25 Pcp, Unknown PCP - General 05/06/25 documented as of this encounter Additional Source Comments The information contained in this document represents components of the legal health record. It is not the complete legal health record.[facility]
--- OUTSIDE RECORDS SUMMARY | 2025-06-06 10:28 | XMS_ITS | Encounter Summary ---
Author Organization [facility] Address [address] [facility] [address] [place] [address] Phone Care Team Providers Care Dye Expert Name Role Phone Chalino Hand MD Primary Care Provider Domonique Acharya MD Primary Care Provider Pcp, Unknown Primary Care Provider Unavailabl e Encounter Details Date Type Department Care Team (Late st Contact Info) Description 06/24/2017 Transcribe Orders [facility] [address] [place] [address] Chalino Hand MD [address] [place] [address] [place] [address] Essential hypertension, benign (Primary Dx) Social History Tobacco Use Types Packs/Day Years [...] (Late Contact Info) Description 04/11/2025 Procedure Pass [address] [address] 11/27/2025 1:15 PM EDT Appointment [address] [address] Domonique Acharya MD [address] [place] [address] documented as of this encounter Procedures Procedure Name Priority Date/Time Associated Diagnosis Comments COMPREHENSIVE METABOLIC PANEL Routine 06/24/2017 9:35 AM EST Essential hypertension, benign documented in this encounter Results * (ABNORMAL) Comprehensive metabolic panel (06/24/2017 9:35 AM EST) SODIUM 144 133 - 146 mmol/L [facility] POTASSIUM 3.8 3.3 - 5.1 mmol/L [facility] CHLORIDE 104 96 - 108 mmol/L [facility] CO2 30 21 - 35 mmol/L [facility] BUN 13 6 - 19 mg/dL [facility] CREATININE 0.80 0.5 - 1.5 mg/dL [facility] GLUCOSE 110(H) 70 - 99 mg/dL [facility] ALBUMIN 3.8(L) 3.9 - 4.8 g/dL [facility] TOTAL PROTEIN 7.8 6.5 - 8.0 g/dL [facility] CALCIUM 9.4 8.4 - 10.3 mg/dL [facility] ALKALINE PHOSPHATASE 97 39 - 117 U/L [facility] TOTAL BILIRUBIN 0.4 0 - 1.2 mg/dL [facility] AST 16 0 - 37 U/L [facility] ALT 11 0 - 40 U/L [facility] GLOBULIN 4.0 1 - 4.8 g/dL [facility] EGFR >60 60 - 1000 mL/min/1.7 3m2 [facility] Comment:Abnormal if <60. If patient is -Macanese, multiply the result by 1.21. ANION GAP 14 10 - 20 mmol/L [facility] Blood 06/24/2017 9:35 AM EST 06/24/2017 9:42 AM EST us Chalino Hand MD LAB BLOOD ORDERABLES Final Result [facility] [address] [place] [address] documented in this encounter Visit Diagnoses Diagnosis Essential hypertension, benign- Primary documented in this encounter Care Teams Dye Expert Relationship Specialty Start Date End Date Chalino Hand MD [address] [place] [address] [place] [address] PCP - General 05/26/17 04/10/25 Domonique Acharya MD [address] [place] [address] [place] [address] PCP - General Internal Medicine 04/11/25 05/05/25 Pcp, Unknown PCP - General 05/06/25 documented as of this encounter Additional Source Comments The information contained in this document represents components of the legal health record. It is not the complete legal health record.[facility]
--- OUTSIDE RECORDS SUMMARY | 2025-06-06 10:28 | XMS_ITS | Encounter Summary ---
Author Organization [facility] Address [address] [facility] [address] [place] [address] Phone Care Team Providers Care Catalogue Compiler Name Role Phone Chalino Hand MD Primary Care Provider Domonique Acharya MD Primary Care Provider Pcp, Unknown Primary Care Provider Unavailabl e Encounter Details Date Type Department Care Team (Late Contact Info) Description 03/10/2018 Transcribe Orders [facility] [address] [place] [address] Chalino Hand MD [address] [place] [address] [place] [address] Essential hypertension, malignant (Primary Dx) Social History Tobacco Use Types [...] (Late Contact Info) Description 04/11/2025 Procedure Pass [address] [address] 11/27/2025 1:15 PM EDT Appointment [address] [address] Domonique Acharya MD [address] [place] [address] documented as of this encounter Procedures Procedure Name Priority Date/Time Associated Diagnosis Comments CREATININE/EGFR Routine 03/10/2018 8:55 AM EDT Essential hypertension, malignant BUN Routine 03/10/2018 8:55 AM EDT Essential hypertension, malignant ELECTROLYTES Routine 03/10/2018 8:55 AM EDT Essential hypertension, malignant documented in this encounter Results * Creatinine/eGFR (03/10/2018 8:55 AM EDT) CREATININE 0.90 0.5 - 1.5 mg/dL [facility] EGFR 69 >59 mL/min/1.7 3m2 [facility] Comment:If patient is black, multiply result by 1.159. Estimated glomerular filtration rate calculated using the CKD-EPI equation. Blood 03/10/2018 8:55 AM EDT 03/10/2018 9:00 AM EDT us Chalino Hand MD LAB BLOOD ORDERABLES Final Result [address] [address] * BUN (03/10/2018 8:55 AM EDT) BUN 12 6 - 19 mg/dL [facility] Blood 03/10/2018 8:55 AM EDT 03/10/2018 9:00 AM EDT us Chalino Hand MD LAB BLOOD ORDERABLES Final Result [address] [address] * Electrolytes (03/10/2018 8:55 AM EDT) SODIUM 145 133 - 146 mmol/L [facility] POTASSIUM 3.6 3.3 - 5.1 mmol/L [facility] CHLORIDE 104 96 - 108 mmol/L [facility] CO2 30 21 - 35 mmol/L [facility] ANION GAP 15 10 - 20 mmol/L [facility] Blood 03/10/2018 8:55 AM EDT 03/10/2018 9:00 AM EDT us Chalino Hand MD LAB BLOOD ORDERABLES Final Result [facility] [address] [place] [address] documented in this encounter Visit Diagnoses Diagnosis Essential hypertension, malignant- Primary documented in this encounter Care Teams Catalogue Compiler Relationship Specialty Start Date End Date Chalino Hand MD [address] [place] [address] [place] [address] PCP - General 05/26/17 04/10/25 Domonique Acharya MD [address] [place] [address] [place] [address] PCP - General Internal Medicine 04/11/25 05/05/25 Pcp, Unknown PCP - General 05/06/25 documented as of this encounter Additional Source Comments The information contained in this document represents components of the legal health record. It is not the complete legal health record.[facility]
--- OUTSIDE RECORDS SUMMARY | 2025-06-06 10:28 | XMS_ITS | Encounter Summary ---
Author Organization [facility] Address [address] [facility] [address] [place] [address] Phone Care Team Providers Care Hotel Sales Manager Name Role Phone Chalino Hand MD Primary Care Provider Domonique Acharya MD Primary Care Provider Pcp, Unknown Primary Care Provider Unavailabl e Encounter Details Date Type Department Care Team (Late st Contact Info) Description 04/10/2020 Procedure Pass [address] [address] Social History Tobacco Use Types Packs/Day Years [...] st Contact Info) Description 04/11/2025 Procedure Pass [address] [address] 11/27/2025 1:15 PM EDT Appointment [address] [address] Domonique Acharya MD [address] [place] [address] documented as of this encounter Visit Diagnoses Not on filedocumented in this encounter Care Teams Hotel Sales Manager Relationship Specialty Start Date End Date Chalino Hand MD [address] [place] [address] [place] [address] PCP - General 05/26/17 04/10/25 Domonique Acharya MD [address] [place] [address] [place] [address] PCP - General Internal Medicine 04/11/25 05/05/25 Pcp, Unknown PCP - General 05/06/25 documented as of this encounter Additional Source Comments The information contained in this document represents components of the legal health record. It is not the complete legal health record.[facility]
--- OUTSIDE RECORDS SUMMARY | 2025-06-06 10:28 | XMS_ITS | Clinical Summary ---
Author Organization [facility] Address [address] [facility] [address] [place] [address] Phone Care Team Providers Care Hub Borer Name Role Phone Pcp, Unknown Primary Care Provider Unavailabl e Allergies Active Allergy Reactions Criticality Noted Date Comments Codeine Hives High 10/26/2017 Penicillins Flushing Low 10/26/2017 Sulfacetamide Sodium Hives High 10/26/2017 Medications LORazepam (ATIVAN) 0.5 MG tablet Take 1 tablet by mouth nightly as needed. Active lisinopril (PRINIVIL,ZESTR IL) 20 MG tablet Take 20 mg by mouth daily. Active OMEPRAZOLE ORAL Take 20 mg by mouth daily. Active bisoprolol-hydr oCHLOROthiazide (ZIAC) 2.5-6.25 mg per tablet Take 1 tablet by mouth daily. 2 Active traMADoL (ULTRAM) 50 mg tablet 3 Active sertraline (ZOLOFT) 25 MG tablet TAKE ONE TABLET BY MOUTH EVERY MORNING DIRECTED 3 Active tiZANidine (ZANAFLEX) 2 MG tablet TAKE 1 TABLET BY MOUTH TWELVE HOURS NEEDED FOR BACK PAIN 3 Active lidocaine (LIDODERM) 5 % Place 1 patch onto the skin daily for 5 days. Remove & Discard patch within 12 hours or as directed by 5 patch 5 05/11/20 25 acetaminophen (TYLENOL) 500 MG tablet Take 1 tablet (500 mg total) by mouth every 6 (six) hours for 5 days. 20 tablet 5 05/11/20 25 tiZANidine (ZANAFLEX) 4 MG tablet Take 0.5 tablets (2 mg total) by mouth every 8 (eight) hours for 5 days. 8 tablet 5 05/11/20 25 Active Problems Problem Noted Date Diagnosed Date Gastroesophageal reflux disease 12/18/2022 12/18/2022 S/P laparoscopic cholecystectomy 08/26/2022 Elevated alkaline phosphatase level 07/17/2022 Resolved Problems Problem Noted Date Diagnosed Date Resolved Date Cholecystitis with gangrene of gallbladder 08/13/2022 08/26/2022 Calculus of gallbladder with acute on chronic cholecystitis without obstruction 07/17/20222022 Encounters Date Type Department Care Team Description 05/06/2025 8:48 PM EDT - 05/07/2025 12:34 AM EDT Emergency [facility] [address] [place] [address] Angelina Gonzalez MD Discharge Disposition: Home or Self Care 04/11/2025 Transcribe Orders Virtual Department [address] [place] [address] Domonique Acharya MD Breast screening (Primary Dx) from Last 3 Months Immunizations Immunization Administration Dates Next Due INFLUENZA, SPLIT VIRUS, TRIVALENT PF 04/09/2016, 04/10/2015 INFLUENZA, SPLIT VIRUS, TRIV ALENT W/ PRESERVATIVE IM 05/10/2020,04/17/2014,05/26/2013,2011,04/28/2011,04/24/2010 Influenza High-Dose Quadriva lent Preservative Free IM 05/12/2022 Influenza Quadrivalent MDCK Preservative Free IM 05/20/2019 Influenza Quadrivalent Prese rvative Free IM 05/10/2021,04/26/2020,05/05/2018 Influenza Trivalent Adjuvant ed Preservative free IM 04/21/2017 Pneumococcal conjugate PCV20 05/12/2022 Family History Medical History Relation Comments Cancer Brother Breast cancer Niece 1 maternal side Breast cancer Niece 2 Breast cancer Paternal Aunt Relation Status Comments Brother Niece 1 Niece 2 Paternal Aunt Social History Tobacco Use Types Packs/Day Years Used Date Smoking Tobacco: Never Smokeless Tobacco: Never Tobacco Cessation:Counseling Given: Not Answered Alcohol Use Standard Drinks/Week Comments No 0 (1 standard drink = 0.6 oz pur e alcohol) Education Answer Date Recorded Are you interested in more education? Not on olive e 12/05/2022 Are you concerned about learning? Not on file 12/05/2022 No 12/05/2022 No 12/05/2022 Digital Access Answer Date Recorded No 01/05/2023 No 01/05/2023 Reliable internet access at home? Not on file 01/05/2023 Device with a working camera? Not on file Intimate Partner Violence Answer Date R ecorded Are you denied basic needs s uch as food, clothing, or medical care? No 05/06/2025 In the past 12 months have y ou been in a relationship with a person who hurts, threatens, or tries to control you? No 05/06/2025 Are you denied basic needs s uch as food, clothing, or medical care? No 05/06/2025 In the past 12 months have y ou been in a relationship with a person who hurts, threatens, or tries to control you? No 05/06/2025 Comments No Sex and Gender Information Value Date Recorded Sex Assigned at Female 05/13/2019 9:59 PM EDT Legal Sex Female 9:53 PM EDT Gender Identity Female 05/13/2019 9:59 PM EDT Sexual Orientation Not on file Last Filed Vital Signs Vital Sign Reading Time Taken Comments Blood Pressure 177/75 05/07/2025 12:13 AM EDT Pulse 78 05/07/2025 12:13 AM EDT Temperature 36.6 C (97.9 F) 05/07/2025 12:13 AM EDT Respiratory Rate 18 05/07/2025 12:13 AM EDT Oxygen Saturation 99% 05/07/2025 12:13 AM EDT Inhaled Oxygen Concentration - - Weight 79.4 kg (175 lb) 08/13/2022 11:35 AM EST Height 167.6 cm (5' 6 ) 12/18/2022 2:28 PM EDT Body Mass Index 28.25 08/13/2022 11:35 AM EST Plan of Treatment Upcoming Encounters Date Type Department Care Team (Late st Contact Info) Description 04/11/2025 Procedure Pass [facility], [facility] [address] [place] [address] 11/27/2025 1:15 PM EDT Appointment [facility], [facility] [address] [place] [address] Domonique Acharya MD [address] [facility] [place] [address] Health Maintenance Due Date Last Done Comments Adult Td,Tdap Booster 1955 DEPRESSION SCREENING 1968 HEPATITIS C SCREENING 1974 COLOGUARD 2001 COLONOSCOPY 2001 COLORECTAL CANCER SCREENING 2001 FIT TEST 2001 FOBT 2001 SIGMOIDOSCOPY 2001 VIRTUAL COLONOSCOPY 2001 ZOSTER VACCINES (1 of 2) 2006 OSTEOPOROSIS SCREENING INITIAL (ONE-TIME) 2021 BLOOD PRESSURE 06/20/2023 12/18/2022 DIABETIC EYE EXAM 01/06/2024 LIPID PANEL 01/05/2025 01/06/2024, 06/19/2023 HEMOGLOBIN A1C 01/31/2025 08/02/2024, 12/09, 06/19/2023 INFLUENZA VACCINE (#1) 2025 , 05/10/2021, 05/10/2020, Additional history exists COVID-19 VACCINE ( season) 2025 07/01/2022, 11/22/2021, 07/20/2021, Additional history exists CREATININE LEVEL 08/02/2025 08/02/2024, , 02/23/2023, Additional history exists POTASSIUM LEVEL 08/02/2025 08/02/2024, 08/11, 02/23/2023, Additional history exists MAMMOGRAM 07/04/2026 07/04/2024, 04/11, 05/05/2022, Additional history exists RSV VACCINE (1 - 1-dose 75+ series) 2031 PNEUMOCOCCAL VACCINES (50+ years) Completed 05/12/2022 SMOKING STATUS SCREENING (Once After 26 Yrs) Completed 07/04/2024 HEPATITIS A VACCINES Aged Out No long er eligible based on patient's age to complete this topic HIB VACCINES Aged Out No longer eligi ble based on patient's age to complete this topic MENINGOCOCCAL VACCINES (ACWY) Aged Out No longer eligible based on patient's age to complete this topic MENINGOCOCCAL VACCINES (B) Aged Out N o longer eligible based on patient's age to complete this topic Medical Devices Not on file Procedures Procedure Name Priority Date/Time Associated Diagnosis Comments HEMOGLOBIN A1C Routine 08/02/2024 9:29 AM EST Hypertension, unspecified type Diabetes mellitus of other type without complication, unspecified whether rodent exterminator insulin use ELECTROLYTES Routine 08/02/2024 9:29 AM EST Hypertension, unspecified type Diabetes mellitus of other type without complication, unspecified whether rodent exterminator insulin use CREATININE/EGFR Routine 08/02/2024 9:29 AM EST Hypertension, unspecified type Diabetes mellitus of other type without complication, unspecified whether rodent exterminator insulin use BI MAMMOGRAM SCREENING WITH TOMOSYNTHESIS WITH CAD (BILATERAL) Routine 07/04/2024 1:14 PM EST Breast screening LIPID PANEL Routine 01/06/2024 8:50 AM EDT Pure hypercholesterolemia from Last 3 Months or Most Recently Relevant to Health Maintenance Results * Creatinine/eGFR (08/02/2024 9:29 AM EST) CREATININE 0.90 0.5 - 1.5 mg/dL [facility] EGFR 70 >59 mL/min/1.7 3m2 [facility] Comment:Estimated glomerular filtration rate calculated using the CKD-EPI refit equation. Blood 08/02/2024 9:29 AM EST 08/02/2024 9:34 AM EST us Chalino Hand MD LAB BLOOD ORDERABLES Final Result [facility] [address] [place] [address] * Hemoglobin A1c (08/02/2024 9:29 AM EST) HEMOGLOBIN A1C 5.7 4.3 - 5.8 % [facility] Blood 08/02/2024 9:29 AM EST 08/02/2024 9:34 AM EST Chalino Hand MD LAB BLOOD ORDERABLES Final Result Performing Organization Address City/[facility] Co de Phone Number [address] [address] * Electrolytes (08/02/2024 9:29 AM EST) SODIUM 143 133 - 146 mmol/L [facility] POTASSIUM 3.6 3.3 - 5.1 mmol/L [facility] CHLORIDE 105 96 - 108 mmol/L [facility] CO2 27 21 - 35 mmol/L [facility] ANION GAP 15 10 - 20 mmol/L [facility] Blood 08/02/2024 9:29 AM EST 08/02/2024 9:34 AM EST Chalino Hand MD LAB BLOOD ORDERABLES Final Result Performing Organization Address [facility] de Phone Number [address] [address] * BI MAMMOGRAM SCREENING WITH TOMOSYNTHESIS WITH CAD (BILATERAL) (07/04/2024 1:14 PM EST) Anatomical Region Laterality Modality Breast Left, Breast Right, Breast Bilateral Bila teral Mammography 07/06/2024 8:20 AM EST Impressions 07/06/2024 8:27 AM EST No mammographic evidence of malignancy in either breast. Annual screening mammography is recommended. BI-RADS 2 BENIGN The patient will be notified of the results and recommendations. Narrative 07/06/2024 8:27 AM EST BI MAMMOGRAM SCREENING WITH TOMOSYNTHESIS WITH CAD (BILATERAL) Additional patient information: Screening. COMPARISON: Comparison is made with relevant prior imaging. Breast composition: The breast tissue is heterogeneously dense which may obscure small masses. FINDINGS: No abnormal masses, suspicious calcifications, or other significant findings are identified mammographically in either breast. Stable group of microcalcifications in the posterior slight inner left breast. Stable skin calcifications on the right. Procedure Note Yasir Capone MD - 07/06/2024 BI MAMMOGRAM SCREENING WITH TOMOSYNTHESIS WITH CAD (BILATERAL) Additional patient information: Screening. COMPARISON: Comparison is made with relevant prior imaging. Breast composition: The breast tissue is heterogeneously dense which mayobscure small masses. FINDINGS: No abnormal masses, suspicious calcifications, or other significantfindings are identified mammographically in either breast. Stable group ofmicrocalcifications in the posterior slight inner left breast. Stable skincalcifications on the right. IMPRESSION: No mammographic evidence of malignancy in either breast. Annual screening mammography is recommended. BI-RADS 2 BENIGN The patient will be notified of the results and recommendations. us Chalino Hand MD IMG MG EXAMS Final Resul t * (ABNORMAL) Lipid panel (01/06/2024 8:50 AM EDT) HDL 47 mg/dL [facility] Comment: Interpretation <40 mg/dL: Low HDL cholesterol (major risk factor for CHD) Greater than or equal to 60 mg/dL: High HDL cholesterol ( negative risk factor for CHD) HDL - cholesterol is affected by a number of factors, e.g. smoking, excerise, hormones, sex and age. CHOLESTEROL 176 0 - 240 mg/dL [facility] TRIGLYCERIDES 161(H) 30 - 160 mg/dL [facility] LDL 97 50 - 129 mg/dL [facility] Comment: LDL levels in terms of risk for coronary heart disease: <100 mg/dL: Optimal 100-129 mg/dL: Near or above optimal 130-159 mg/dL: Borderline high 160-189 mg/dL: High >190 mg/dL: Very High CARDIAC RISK RATIO 3.7 3.3 - 4.4 [facility] Blood 01/06/2024 8:50 AM EDT 01/06/2024 8:59 AM EDT us Chalino Hand MD LAB BLOOD ORDERABLES Final Result [facility] [address] [place] [id number] from Last 3 Months or Most Recently Relevant to Health Maintenance Insurance [place] [place] [id number] [place] [id number] [place] [id number] Advance Directives For more information, please contact: [phone] (9AM - 5PM [place], Thursday-Thursday) * Full Code (Latest Code Status on File) Date Activated Date Inactivated Comments 08/13/2022 8:18 PM Question Answer Comments Code Status Confirmed With: Patient * Full Code Date Activated Date Inactivated Comments 08/13/2022 11:37 AM 08/13/2022 8:18 PM Question Answer Comments Code Status Confirmed With: Patient Care Teams Hub Borer Relationship Specialty Start Date End Date Pcp, Unknown PCP - General 05/06/25 Additional Source Comments The information contained in this document represents components of the legal health record. It is not the complete legal health record.[facility]
--- OUTSIDE RECORDS SUMMARY | 2025-06-06 10:28 | XMS_ITS | Clinical Summary ---
Author Organization [employer] Address [address] [facility] [address] [place] [address] Care Team Providers Care C Software Engineer Name Role Phone Unavailable Primary Care Provider Unavailabl e Social History Tobacco Use Types Packs/Day Years Used Date Smoking Tobacco: Never Assessed Comments Unknown Sex and Gender Information Value Date Recorded Sex Assigned at Female 06/09/2022 10:31 AM EDT Legal Sex Female 10:31 AM EDT Gender Identity Female 06/09/2022 10:31 AM EDT Sexual Orientation Straight 05/06/2024 10 :28 AM EDT Plan of Treatment Health Maintenance Due Date Last Done Comments CT Colonography 1956 Colonoscopy 1956 Colorectal Cancer Screening 1956 Dental X-Ray: Bitewings 1956 Dental X-Ray: Full Mouth 1956 Depression Screening 1956 FIT DNA/Cologuard 1956 FIT 1956 FOBT 1956 SDOH Screening 1956 Sigmoidoscopy 1956 Alcohol/Substance Use Screening 1968 Tobacco Screening 1968 Hepatitis C Screening 1974 DTaP/Tdap/Td Vaccines (1 - Tdap) 1975 Mammogram 1996 Dental Oral Exam 01/28/2020 07/28/2019, , 07/07/2018, Additional history exists Dental Prophylaxis 01/28/2020 07/28/2019, 0 01/05/2019, 07/07/2018, Additional history exists Zoster Vaccines (2 of 2) 09/09/2023 07/15/2023 COVID-19 Vaccine ( season) 2025 04/21/2024, 07/15/2023, 07/01/2022, Additional history exists Influenza Vaccine (#1) 2025 , 05/13/2023, 05/12/2022, Additional history exists RSV Patients and Patients Aged 60 years or older (1 - 1-dose 75+ series) 2031 Pneumococcal Vaccine: 50+ Years Completed 05/12/2022 HIB Vaccines Aged Out No longer eligi ble based on patient's age to complete this topic HPV Vaccines Aged Out No longer eligi ble based on patient's age to complete this topic Hepatitis A Vaccines Aged Out No long er eligible based on patient's age to complete this topic Hepatitis B Vaccines Aged Out No long er eligible based on patient's age to complete this topic IPV Vaccines Aged Out No longer eligi ble based on patient's age to complete this topic Meningococcal B Vaccine Aged Out No l onger eligible based on patient's age to complete this topic Meningococcal Vaccine Aged Out No rodger ashley eligible based on patient's age to complete this topic RSV under 20 months Aged Out No longe r eligible based on patient's age to complete this topic Rotavirus Vaccines Aged Out No longer eligible based on patient's age to complete this topic Procedures Procedure Name Priority Date/Time Associated Diagnosis Comments PROPHYLAXIS - ADULT Routine 07/28/2019 1 2:00 AM EST PERIODIC ORAL EVALUATION - ESTABLISHED PATIENT Routine 07/28/2019 12:00 AM EST from Last 3 Months or Most Recently Relevant to Health Maintenance Insurance [facility]
--- OUTSIDE RECORDS SUMMARY | 2025-06-06 10:28 | XMS_ITS | Encounter Summary ---
Author Organization [facility] Address [address] [facility] [address] [place] [address] Phone Care Team Providers Care Chocolate Coater Name Role Phone Chalino Hand MD Primary Care Provider Domonique Acharya MD Primary Care Provider [phone] Pcp, Unknown Primary Care Provider Unavailabl e Encounter Details Date Type Department Care Team (Late st Contact Info) Description 03/16/2024 Procedure Pass [facility], [facility] [address] [place] [address] Social History Tobacco Use Types Packs/Day Years [...] st Contact Info) Description 04/11/2025 Procedure Pass [address] [address] 11/27/2025 1:15 PM EDT Appointment [address] [address] Domonique Acharya MD [address] [place] [phone] documented as of this encounter Visit Diagnoses Not on filedocumented in this encounter Care Teams Chocolate Coater Relationship Specialty Start Date End Date Chalino Hand MD [address] [place] [address] [place] [address] PCP - General 05/26/17 04/10/25 Domonique Acharya MD [address] [place] [address] [place] [address] PCP - General Internal Medicine 04/11/25 05/05/25 Pcp, Unknown PCP - General 05/06/25 documented as of this encounter Additional Source Comments The information contained in this document represents components of the legal health record. It is not the complete legal health record.[facility]
--- OUTSIDE RECORDS SUMMARY | 2025-06-06 10:28 | XMS_ITS | Encounter Summary ---
Author Organization [facility] Address [address] [facility] [address] [place] [address] Phone Care Team Providers Care Tiltrotor Crew Chief Name Role Phone Chalino Hand MD Primary Care Provider Domonique Acharya MD Primary Care Provider Pcp, Unknown Primary Care Provider Unavailabl e Encounter Details Date Type Department Care Team (Late Contact Info) Description 09/13/2020 Transcribe Orders Virtual Department [address] [place] [phone] Chalino Hand MD [address] [place] [address] [place] [address] Travel advice encounter (Primary Dx) Social History Tobacco Use Types [...] (Late Contact Info) Description 04/11/2025 Procedure Pass [address] [address] 11/27/2025 1:15 PM EDT Appointment [address] [address] Domonique Acharya MD [address] [place] [address] documented as of this encounter Results * COVID-19 PCR Order (09/14/2020 8:06 AM EST) COVID Testing Status Specimen received in analyzing lab. Results should be available within 24 to 48 hrs. [facility] Symptomatic? NO [facility] 09/14/2020 8:06 AM EST 09/14/2020 4:36 PM EST us Chalino Hand MD BODY FLUIDS AND STOOLS MARK BUSTOS Final Result [facility] [address] [place] [address] [facility] [address] [place] [phone] documented in this encounter Visit Diagnoses Diagnosis Travel advice encounter- Primary documented in this encounter Care Teams Tiltrotor Crew Chief Relationship Specialty Start Date End Date Chalino Hand MD [address] [place] [address] [place] [address] PCP - General 05/26/17 04/10/25 Domonique Acharya MD [address] [place] [address] [place] [address] PCP - General Internal Medicine 04/11/25 05/05/25 Pcp, Unknown PCP - General 05/06/25 documented as of this encounter Additional Source Comments The information contained in this document represents components of the legal health record. It is not the complete legal health record.[facility]
--- OUTSIDE RECORDS SUMMARY | 2025-06-06 10:28 | XMS_ITS | Encounter Summary ---
Author Organization [facility] Address [address] [facility] [address] [place] [address] Phone Care Team Providers Care Piccoloist Name Role Phone Chalino Hand MD Primary Care Provider Domonique Acharya MD Primary Care Provider Pcp, Unknown Primary Care Provider Unavailabl e Encounter Details Date Type Department Care Team (Late Contact Info) Description 05/01/2020 Ancillary Orders [address] [address] Chalino Hand MD [address] [place] [address] [place] [address] Pain Social History Tobacco Use Types Packs/Day Years [...] (Late Contact Info) Description 04/11/2025 Procedure Pass [address] [address] 11/27/2025 1:15 PM EDT Appointment [address] [address] Domonique Acharya MD [address] [place] [address] documented as of this encounter Results * XR KNEE 4 OR MORE VIEWS (BILATERAL) (05/01/2020 1:25 PM EDT) Anatomical Region Laterality Modality Knee Bilateral, Knee Right, Knee Left Computed Radiography 05/01/2020 1:39 PM EDT Impressions 05/01/2020 1:41 PM EDT Mild bilateral medial compartment narrowing and patellar enthesopathy. POS - [id number] Narrative 05/01/2020 1:41 PM EDT COMPARISON: None FINDINGS: AP upright, tunnel, lateral, and specialized patellar views of both knees were obtained. Joint spaces are symmetric and no significant varus or valgus deformity identified. On the right there is narrowing of the medial compartment. No acute fracture or subluxation. No gross suprapatellar effusion or opaque loose joint body. No periarticular spurring. Anterior upper and lower pole patellar spurring and anterior tibial spurring are noted at the quadriceps and infrapatellar tendon insertion points. On the left there is minimal narrowing of the medial compartment. No traumatic or destructive bony abnormalities. No gross suprapatellar effusion. Anterior upper and lower pole patellar and anterior tibial spurring noted at the quadriceps and infrapatellar tendon insertion points. No opaque loose joint body. No periarticular spurring. Procedure Note Marcus Martin MD - 05/01/2020 COMPARISON: None FINDINGS: AP upright, tunnel, lateral, and specialized patellar views of both kneeswere obtained. Joint spaces are symmetric and no significant varus orvalgus deformity identified. On the right there is narrowing of the medial compartment. No acutefracture or subluxation. No gross suprapatellar effusion or opaque loosejoint body. No periarticular spurring. Anterior upper and lower polepatellar spurring and anterior tibial spurring are noted at the quadricepsand infrapatellar tendon insertion points. On the left there is minimal narrowing of the medial compartment. Notraumatic or destructive bony abnormalities. No gross suprapatellareffusion. Anterior upper and lower pole patellar and anterior tibialspurring noted at the quadriceps and infrapatellar tendon insertionpoints. No opaque loose joint body. No periarticular spurring. IMPRESSION: Mild bilateral medial compartment narrowing and patellar enthesopathy. POS - [id number] Chalino Hand MD IMG XR LOWER EXTREMITY Jennyfer l Result documented in this encounter Visit Diagnoses Diagnosis Pain Generalized pain Pain Generalized pain documented in this encounter Care Teams Piccoloist Relationship Specialty Start Date End Date Chalino Hand MD [address] [place] [address] [place] [address] PCP - General 05/26/17 04/10/25 Domonique Acharya MD [address] [place] [address] [place] [address] PCP - General Internal Medicine 04/11/25 05/05/25 Pcp, Unknown PCP - General 05/06/25 documented as of this encounter Additional Source Comments The information contained in this document represents components of the legal health record. It is not the complete legal health record.[facility]
--- OUTSIDE RECORDS SUMMARY | 2025-06-06 10:28 | XMS_ITS | Encounter Summary ---
Author Organization [facility] Address [address] [facility] [address] [place] [address] Phone Care Team Providers Care Television Operator Name Role Phone Chalino Hand MD Primary Care Provider Domonique Acharya MD Primary Care Provider Pcp, Unknown Primary Care Provider Unavailabl e Encounter Details Date Type Department Care Team (Late st Contact Info) Description 02/04/2021 Procedure Pass [address] [address] Social History Tobacco Use Types Packs/Day Years [...] st Contact Info) Description 04/11/2025 Procedure Pass [address] [address] 11/27/2025 1:15 PM EDT Appointment [address] [address] Domonique Acharya MD [address] [place] [address] documented as of this encounter Visit Diagnoses Not on filedocumented in this encounter Care Teams Television Operator Relationship Specialty Start Date End Date Chalino Hand MD [address] [place] [address] [place] [address] PCP - General 05/26/17 04/10/25 Domonique Acharya MD [address] [place] [address] [place] [address] PCP - General Internal Medicine 04/11/25 05/05/25 Pcp, Unknown PCP - General 05/06/25 documented as of this encounter Additional Source Comments The information contained in this document represents components of the legal health record. It is not the complete legal health record.[facility]
--- OUTSIDE RECORDS SUMMARY | 2025-06-06 10:28 | XMS_ITS | Encounter Summary ---
Author Organization [facility] Address [address] [facility] [address] [place] [address] Phone Care Team Providers Care Poultry Farm Laborer Name Role Phone Chalino Hand MD Primary Care Provider Domonique Acharya MD Primary Care Provider Pcp, Unknown Primary Care Provider Unavailabl e Encounter Details Date Type Department Care Team (Late Contact Info) Description 09/27/2018 Ancillary Orders Virtual Department [address] [place] [address] Chalino Hand MD [address] [place] [address] [place] [address] Breast screening Social History Tobacco Use Types [...] Contact Info) Description 04/11/2025 Procedure Pass [address] [address] 11/27/2025 1:15 PM EDT Appointment [address] [address] Domonique Acharya MD [address] [place] [address] documented as of this encounter Results * BI MAMMOGRAM SCREENING WITH TOMOSYNTHESIS WITH CAD (BILATERAL) (12/24/2018 1:54 PM EDT) Anatomical Region Laterality Modality Breast Left, Breast Right, Breast Bilateral Bila teral Mammography 12/24/2018 2:08 PM EDT Impressions 12/24/2018 2:10 PM EDT Stable appearance relative to prior imaging. No findings suggestive of malignancy are seen. BI-RADS CATEGORY: 2 - Benign finding. DENSITY: The breast tissue is heterogeneously dense, an appearance which lowers the sensitivity of mammography. POS - [id number] Narrative 12/24/2018 2:10 PM EDT Full-field digital mammography is obtained with computer-aided detection. Comparison with prior imaging from 12/23/2017 is made with older imaging dating back as far as 12/07/2012 also reviewed. There is heterogeneous fibroglandular density evident in the breasts. In addition to 2-D C view imaging, tomosynthesis images are obtained in two projections of each breast. There are scattered punctate calcifications evident bilaterally which are unchanged.. No dominant soft tissue mass of concern, suspicious cluster of calcifications, significant interval skin changes, or architectural distortion is identified. Procedure Note Wilver Velásquez MD - 12/24/2018 Full-field digital mammography is obtained with computer-aided detection.Comparison with prior imaging from 12/23/2017 is made with older imagingdating back as far as 12/07/2012 also reviewed. There is heterogeneous fibroglandular density evident in the breasts. Inaddition to 2-D C view imaging, tomosynthesis images are obtained in twoprojections of each breast. There are scattered punctate calcifications evident bilaterally which areunchanged.. No dominant soft tissue mass of concern, suspicious clusterof calcifications, significant interval skin changes, or architecturaldistortion is identified. IMPRESSION: Stable appearance relative to prior imaging. No findings suggestive ofmalignancy are seen. BI-RADS CATEGORY: 2 - Benign finding. DENSITY: The breast tissue is heterogeneously dense, an appearance whichlowers the sensitivity of mammography. POS - [id number] Chalino Hand MD IMG MG EXAMS Final Resul t documented in this encounter Visit Diagnoses Diagnosis Breast screening Breast screening, unspecified Breast screening Breast screening, unspecified documented in this encounter Care Teams Poultry Farm Laborer Relationship Specialty Start Date End Date Chalino Hand MD [address] [place] [address] [place] [address] PCP - General 05/26/17 04/10/25 Domonique Acharya MD [address] [place] [address] [place] [address] PCP - General Internal Medicine 04/11/25 05/05/25 Pcp, Unknown PCP - General 05/06/25 documented as of this encounter Additional Source Comments The information contained in this document represents components of the legal health record. It is not the complete legal health record.[facility]
--- OUTSIDE RECORDS SUMMARY | 2025-06-06 10:28 | XMS_ITS | Encounter Summary ---
Author Organization [facility] Address [address] [facility] [address] [place] [address] Phone Care Team Providers Care Coiled Tubing Operator Name Role Phone Chalino Hand MD Primary Care Provider Domonique Acharya MD Primary Care Provider [phone] Pcp, Unknown Primary Care Provider Unavailabl e Encounter Details Date Type Department Care Team (Late st Contact Info) Description 08/13/2022 Procedure Pass OR Admitting Dept - Virtual Department [address] [place] [address] Social History Tobacco Use Types Packs/Day Years Used Date Smoking Tobacco: Never Smokeless Tobacco: Never Alcohol Use Standard Drinks/Week Comments No 0 (1 standard drink = 0.6 oz pur e alcohol) Intimate Partner Violence Answer Date R ecorded [...] Date of Assessment Author No Risk Indicated 08/13/2022 10:03 PM An Jessica RN * [place] Suicide Severity Rating Scale (Screener/Recent Self-Report) Question Answer Date of Assessment Author 1. Wish to be (Past 1 Month) No 08/13/2022 10:03 PM Benson Mcneal RN 2. Non-Specific Active Suici lizzie Thoughts (Past 1 Month) No 08/13/2022 10:03 PM Nidhi Mcneal RN 6. Suicidal Behavior (Lifetime) No 10:03 PM An Mcneal, SHEFALI documented as of this encounter Plan of Treatment Upcoming Encounters Date Type Department Care Team (Late st Contact Info) Description 04/11/2025 Procedure Pass [address] [address] 11/27/2025 1:15 PM EDT Appointment [address] [address] Domonique Acharya MD [address] [place] [address] documented as of this encounter Visit Diagnoses Not on filedocumented in this encounter Care Teams Coiled Tubing Operator Relationship Specialty Start Date End Date Chalino Hand MD [address] [place] [address] [place] [address] PCP - General 05/26/17 04/10/25 Domonique Acharya MD [address] [place] [address] [place] [address] PCP - General Internal Medicine 04/11/25 05/05/25 Pcp, Unknown PCP - General 05/06/25 documented as of this encounter Additional Source Comments The information contained in this document represents components of the legal health record. It is not the complete legal health record.[facility]
--- OUTSIDE RECORDS SUMMARY | 2025-06-06 10:28 | XMS_ITS | Encounter Summary ---
Author Organization [facility] Address [address] [facility] [address] [place] [address] Phone Care Team Providers Care Rn Advanced Name Role Phone Chalino Hand MD Primary Care Provider [phone] Domonique Acharya MD Primary Care Provider Pcp, Unknown Primary Care Provider Unavailabl e Reason for Referral * Physical Therapy (Routine) - Closed Specialty Diagnoses / Procedures Referred By Dede recinos Referred To Contact Physical Therapy Diagnoses Encounter for rehabilitation mid back pain Procedures [facility], Provider Not In, PhD [id number] [place] [address] [address] [place] [address] Phone: tel: Referral ID Status Reason Start Date Expiration Date Visits Re quested Visits Authorized [id number] Closed 07/06/2017 05/09/2018 9 9 Encounter Details Date Type Department Care Team (Latest Contact Info) Description 07/06/2017 Transcribe Orders [facility] [address] [place] [address] Chalino Hand MD [address] [place] [address] [facility] [place] [address] Encounter for rehabilitation (Primary Dx) Social History Tobacco Use Types [...] st Contact Info) Description 04/11/2025 Procedure Pass [address] [address] 11/27/2025 1:15 PM EDT Appointment [address] [address] Domonique Acharya MD [address] [place] [address] documented as of this encounter Procedures Procedure Name Priority Date/Time Associated Diagnosis Comments AMB REFERRAL TO [facility] PHYSICAL THERAPY Routine 07/07/2017 4:21 PM EST Encounter for rehabilitation documented in this encounter Results * Ambulatory referral to [facility] Physical Therapy (07/07/2017 4:21 PM EST) us Provider Not In System PhD AMB [facility] REFERRALS Fin al Result documented in this encounter Visit Diagnoses Diagnosis Encounter for rehabilitation- Primary documented in this encounter Care Teams Rn Advanced Relationship Specialty Start Date End Date Chalino Hand MD [address] [place] [address] [place] [address] PCP - General 05/26/17 04/10/25 Domonique Acharya MD [address] [place] [address] [place] [address] PCP - General Internal Medicine 04/11/25 05/05/25 Pcp, Unknown PCP - General 05/06/25 documented as of this encounter Additional Source Comments The information contained in this document represents components of the legal health record. It is not the complete legal health record.[facility]
--- OUTSIDE RECORDS SUMMARY | 2025-06-06 10:29 | XMS_ITS | Encounter Summary ---
Author Organization [facility] Address [address] [facility] [address] [place] [phone] Phone Care Team Providers Care Brush Material Preparer Name Role Phone Chalino Hand MD Primary Care Provider Domonique Acharya MD Primary Care Provider Pcp, Unknown Primary Care Provider Unavailabl e Encounter Details Date Type Department Care Team (Late Contact Info) Description 02/04/2021 Ancillary Orders Virtual Department [address] [place] [address] Chalino Hand MD [address] [place] [address] [facility] [address] Breast screening Social History Tobacco Use Types [...] (Late Contact Info) Description 04/11/2025 Procedure Pass [address] [address] 11/27/2025 1:15 PM EDT Appointment [address] [address] Domonique Acharya MD [address] [place] [address] documented as of this encounter Results * BI MAMMOGRAM SCREENING WITH TOMOSYNTHESIS WITH CAD (BILATERAL) (05/02/2021 12:52 PM EDT) Anatomical Region Laterality Modality Breast Left, Breast Right, Breast Bilateral Bila teral Mammography 05/02/2021 1:10 PM EDT Impressions 05/02/2021 1:13 PM EDT No mammographic change indicative of malignancy. Routine screening is recommended. BI-RADS CATEGORY: 2 - Benign finding. DENSITY: There are scattered fibroglandular densities. Narrative 05/02/2021 1:13 PM EDT Bilateral full-field digital screening mammography is obtained and read in conjunction with computer-aided detection. Tomosynthesis as well as 2-D C view imaging of both breasts in two planes also obtained. Comparison made to multiple prior, most recent May 01, 2020, and most remote December 15, 2014. No dominant mass, architectural distortion, worrisome asymmetry, or suspicious calcification is identified. No skin or nipple finding of concern is appreciated. In the left breast are stable. Scattered dermal calcifications on the right are also stable. Procedure Note Ino Goldsmith MD - 05/02/2021 Bilateral full-field digital screening mammography is obtained and read inconjunction with computer-aided detection. Tomosynthesis as well as 2-D Cview imaging of both breasts in two planes also obtained. Comparison madeto multiple prior, most recent May 01, 2020, and most remote December. No dominant mass, architectural distortion, worrisome asymmetry, orsuspicious calcification is identified. No skin or nipple finding ofconcern is appreciated. In the left breast are stable. Scattered dermalcalcifications on the right are also stable. IMPRESSION: No mammographic change indicative of malignancy. Routine screening isrecommended. BI-RADS CATEGORY: 2 - Benign finding. DENSITY: There are scattered fibroglandular densities. us Chalino Hand MD IMG MG EXAMS Final Resul t documented in this encounter Visit Diagnoses Diagnosis Breast screening Breast screening, unspecified Breast screening Breast screening, unspecified documented in this encounter Care Teams Brush Material Preparer Relationship Specialty Start Date End Date Chalino Hand MD [address] [place] [address] [place] [address] PCP - General 05/26/17 04/10/25 Domonique Acharya MD [address] [place] [address] [place] [address] PCP - General Internal Medicine 04/11/25 05/05/25 Pcp, Unknown PCP - General 05/06/25 documented as of this encounter Additional Source Comments The information contained in this document represents components of the legal health record. It is not the complete legal health record.[facility]
--- OUTSIDE RECORDS SUMMARY | 2025-06-06 10:29 | XMS_ITS | Encounter Summary ---
Author Organization [facility] Address [address] [facility] [address] [place] [address] Phone Care Team Providers Care Dual Rate Dealer Name Role Phone Domonique Acharya MD Primary Care Provider Pcp, Unknown Primary Care Provider Unavailabl e Encounter Details Date Type Department Care Team (Late st Contact Info) Description 04/11/2025 Transcribe Orders Virtual Department [address] [place] [address] Domonique Acharya MD [address] [place] [address] Breast screening (Primary Dx) Social History Tobacco Use Types [...] st Contact Info) Description 04/11/2025 Procedure Pass [address] [address] 11/27/2025 1:15 PM EDT Appointment [address] [address] Domonique Acharya MD [address] [place] [address] Scheduled Orders Name Type Priority Associated Diagnoses Orde r Schedule Mammogram Screening (Bilateral) Imaging Routine Breast screening Expected: 05/11/2025, Expires: 04/11/2026 documented as of this encounter Visit Diagnoses Diagnosis Breast screening- Primary Breast screening, unspecified documented in this encounter Care Teams Dual Rate Dealer Relationship Specialty Start Date End Date Domonique Acharya MD [address] [place] [address] [place] [address] PCP - General Internal Medicine 04/11/25 05/05/25 Pcp, Unknown PCP - General 05/06/25 documented as of this encounter Additional Source Comments The information contained in this document represents components of the legal health record. It is not the complete legal health record.[facility]
== END 2025-06-06 10:04 | disposition home or self-care (01) ==
PROVIDERS: PCP Physician Assistant; Visit Provider Physician Assistant
DX: I10 Essential (primary) hypertension (principal); R73.03 Prediabetes; M79.7 Fibromyalgia; M54.50 Low back pain, unspecified; G89.29 Other chronic pain